=== PATIENT | female | born 1965 | race Caucasian/White ===

== ENCOUNTER 2016-07-14 17:51 | Emergency (ER) | payer OTHER ==
[~2016-07-14] VITALS: Ht 172.7 cm; Wt 58.5 kg
[~2016-07-14 17:51] MED LIST: ACARBOSE50 MG PO; CARAFATE 1GM1000 MG PO; CHOLESTYRAMINE P4 GM PO; DAILY MULTIPLE1 TAB PO; DEPAKOTE ER500 M1 PO; DEXILANT30 MG PO; DIVALPROEX SOD500 M1 PO; HYDROCODONE BI120 M1 PO; HYDROXYZINE PAM25 M2 PO; HYDROXYZINE PAM25 MG PO; LEVSIN-SL0.125 MG SL; MULTI-DAY VITA1 EACH PO; OXYCODONE5 M1 PO; PANTOPRAZOLE SO40 M1 PO; PROTONIX 20MG T20 MG PO; PROVENTIL HFA6.7 GM INH; REGLAN10 MG PO; SERTRALINE HYDR50 MG PO; TOPROL XL25 MG PO; VIBERZI75 MG PO; VITAB121000 SL; WELCHOL 625 MG625 MG PO; XANAX1 MG PO; XIFAXAN550 MG; XIFAXAN550 MG PO; ZOFRAN ODT4 M1 SL; ZOFRAN4 M1 PO; ZOFRAN4 M1 SL; ZOLOFT100 M1 PO
[2016-07-14 18:19] LABS: ABSOLUTE BASOPHIL COUNT 0 /CUMM (0.0-0.2); ABSOLUTE EOSINOPHIL COUNT 0 /CUMM (0.0-0.7); ABSOLUTE MONOCYTE COUNT 0.4 /CUMM (0.10-0.60); BASOPHIL % 0.4 % (0.0-2.0); EOSINOPHIL % 0.5 % (0-5); GRANULOCYTE % 66.6 % (42.2-75.2); HEMATOCRIT 39.7 % (37-47); MEAN CORPUSCULAR HGB 33.3 PG (27.0-31.0); MEAN CORPUSCULAR VOLUME 100.8 FL (81.0-99.0); MEAN PLATELET VOLUME 9.2 FL (7.4-10.4); PLATELET COUNT 177 /CUMM (130-400); RBC DISTRIBUTION WIDTH 13.9 % (11.5-14.5); RED BLOOD CELL CT 3.94 /CUMM (4.20-5.40); WHITE BLOOD CELL COUNT 7.5 /CUMM (4.8-10.8)
--- NOTE | 2016-07-14 18:44 | ED GI/GU/ABDOMINAL COMPLAINT ---
History of Present Illness General Chief Complaint: Abdominal Pain/Flank Pain Stated Complaint: ABD PAIN, HX OBSTRUCTIONS Source: patient, BOYFRIEND Exam Limitations: no limitations Vital Signs & Intake/Output Vital Signs & Intake/Output Vital Signs Date Time Temp Pulse Resp B/P B/P Pulse O2 O2 Flow FiO2 Mean Ox Delivery Rate 07/14 2244 96.0 73 16 95/60 97 Room Air 07/14 1902 98 Room Air 07/14 1757 96.7 69 18 Room Air ED Intake and Output 07/15 0000 07/14 1200 Intake Total Output Total Balance Patient 129 lb Weight Weight Reported by Patient Measurement Method Triage Note: 51 Y/O FEMALE C/O ABDOMINAL "SPASMS" AND DRY HEAVING/BELCHING SINCE MONDAY. HX GASTRIC BYPASS IN 2011 AND HAS HAD 5 "BLOCKAGES SINCE" - STATES THIS FEELS THE SAME. REPORTS SHE IS ABLE TO PASS GAS AND HAS CHRONIC DIARRHEA. AFEBRILE. Triage Nurses Notes Reviewed? yes HPI: Patient presents for evaluation of severe nausea and vomiting and abdominal pain that began 6 days ago, gradually. Patient's symptoms have been more or less constant and of gotten worse optic her to come to the emergency department for evaluation. She is experiencing severe nausea and vomiting/dry heaves. She has tried Zofran without improvement. She is also having diarrhea that tends to be chronic for her. She is status post Sulma-en-Y procedure and contacted her bariatric surgeon, who felt a CAT scan should be obtained. Patient states that shortly after she contacted the surgeon she felt worse and came to the emergency department. Her abdominal pain as a diffuse cramping abdominal pain. Nothing seems to make her feel better. (ZOIE SMITH,FLORES Flores) Allergies Coded Allergies: adhesive tape (Intermediate, RASH 06/15/15) aspirin (Intermediate, RASH 06/15/15) hydrocodone (Intermediate, ITCHING 06/15/15) latex (Intermediate, RASH 06/15/15) povidone-iodine (From BETADINE) (Intermediate, RASH 06/18/15) soap (From BETADINE) (Intermediate, RASH 06/18/15) risperidone (From RISPERDAL) (TACHYCARDIA 07/14/16) Uncoded Allergies: DERMABOND SKIN GLUE (Intermediate, RASH 05/04/14) Reconcile Medications Acarbose 50 MG TABLET 1 TAB PO PRN BLOOD SUGAR (Reported) Albuterol Sulfate (Proventil Hfa) 90 MCG HFA.AER.AD 2 PUF INH PRN RESPIRATORY (Reported) Colesevelam Hydrochloride (Welchol) 625 MG TABLET 2 TAB PO BID DIARRHEA ( Reported) Cyclobenzaprine HCl 10 MG TABLET 1 TAB PO TID PRN MUSCLE SPASMS (Reported) Dimenhydrinate (Dramamine) 50 MG TABLET 1 TAB PO PRN NAUSEA (Reported) Divalproex Sodium (Depakote ER) 500 MG TAB.ER.24H 2,000 MG PO QPM MENTAL HEALTH (Reported) Hydroxyzine Pamoate 50 MG CAPSULE 1 CAP PO QAM ANXIETY (Reported) Hydroxyzine Pamoate 50 MG CAPSULE 2 TAB PO QPM SLEEP/ANXIETY (Reported) Multivitamin (Multi-Day Vitamins) 1 EACH TABLET 1 TAB PO DAILY SUPPLEMENT ( Reported) Ondansetron (Zofran Odt) 4 MG TAB.RAPDIS 1 TAB SL TID PRN nausea Pantoprazole Sodium 40 MG TABLET.DR 1 TAB PO DAILY GI (Reported) Pramipexole Di-HCl (Mirapex) 0.25 MG TABLET 1 TAB PO QPM LEG CRAMPS (Reported ) Sertraline HCl (Zoloft) 100 MG TABLET 2 TAB PO QAM MENTAL HEALTH (Reported) ? n Is pt currently ? No (ARUN SMITH,TONNY) Past History Travel History Traveled to [place] past 21 day No Medical History Neurological: NONE EENT: NONE Cardiovascular: bradycardia ventricular bigeminy PVCs Respiratory: bronchitis, pneumonia Gastrointestinal: GERD, small bowel obstruction OVERGROWTH IN SMALL INT. 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 SISTER (hypothyroidism). FATHER (valvular heard disease). Relation not specified for: FH: aortic stenosis (ZOIE SMITH,FLORES Flores) Medical History Any Pertinent Medical History? see below for history Family History Hx Contributory? No (TONNY DIAS MD) Review of Systems Review of Systems Constitutional: Reports: see HPI, malaise. EENTM: Reports: no symptoms. Respiratory: Reports: no symptoms. Cardiovascular: Reports: no symptoms. GI: Reports: see HPI, abdominal pain, nausea, vomiting. Genitourinary: Reports: no symptoms. Musculoskeletal: Reports: no symptoms. Skin: Reports: no symptoms. Neurological/Psychological: Reports: no symptoms. Hematologic/Endocrine: Reports: no symptoms. Immunologic/Allergic: Reports: no symptoms. All Other Systems: Reviewed and Negative (TONNY DIAS MD) Physical Exam Physical Exam Gastrointestinal: SEE BELOW Comments: Gen.: Well-nourished, well-developed, no acute respiratory distress. Head: Normocephalic, atraumatic. Eyes: Normal inspection bilaterally Ears: Normal inspection bilaterally Nose: Normal inspection Throat/mouth : Moist mucosa Neck: Supple, full range of motion, no goiter Heart: Regular rate and rhythm, no murmurs rubs or gallops Lungs: Clear to auscultation bilaterally with normal air entry Chest: Nontender Back: Normal range of motion Abdomen: Soft, diffusely tender without rebound or guarding, nondistended, normal bowel sounds, no palpable masses Extremities: Normal range of motion grossly, equal radial pulses, no cyanosis, mild pretibial pitting edema bilaterally Neurologic: Cranial nerves grossly intact, speech is clear Skin: warm and dry Psychiatric: Calm, cooperative, no apparent delusions or hallucinations (ZOIE SMITH,FLORES Flores) Core Measures ACS in differential dx? No Severe Sepsis Present: No Septic Shock Present: No (TONNY DIAS MD) Progress Differential Diagnosis: biliary colic, bowel obstruction, diverticulitis, pancreatitis Plan of Care: Orders Procedure Date/time Status Add-on Test (ER Only) 07/14 184 Active LIPASE 07/14 1801 Complete COMPREHENSIVE METABOLIC PANEL 07/14 180 Complete CBC WITHOUT DIFFERENTIAL 07/14 1800 Complete Laboratory Tests 07/14/16 180: Anion Gap 9, Estimated GFR > 60, BUN/Creatinine Ratio 18.8, Glucose 81, Calcium 9.2, Total Bilirubin 0.5, AST 24, ALT 42, Alkaline Phosphatase 38, Total Protein 6.4, Albumin 4.2, Globulin 2.2, Albumin/Globulin Ratio 1.9, Lipase 185, CBC w Diff NO MAN DIFF REQ, RBC 3.94 L, MCV 100.8 H, MCH 33.3 H, RDW 13.9, MPV 9.2, Gran % 66.6, Lymphocytes % 26.6, Monocytes % 5.9, Eosinophils % 0.5, Basophils % 0.4, Absolute Granulocytes 5.0, Absolute Lymphocytes 2.0, Absolute Monocytes 0.4 , Absolute Eosinophils 0, Absolute Basophils 0, PUBS MCHC 33.0 Initial ED EKG: none Comments: 07/14/2016 7:28:26 PM 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 (ZOIE SMITH,FLORES Flores) Diagnostic Imaging: Viewed by Me: CT Scan. Discussed w/RAD: CT Scan. Radiology Impression: No acute findings of the abdomen or pelvis. No bowel obstruction. No definite acute inflammatory changes. Comments: Updated with results. No further nausea complains of continued pain. Resting comfortably without pain after IV acetaminophen. (TONNY DIAS MD) Departure Departure Condition: Stable Departure Forms: Customer Survey General Discharge Information (ZOIE SMITH,FLORES Flores) Departure Time of Disposition: 2217 Disposition: HOME OR SELF CARE Clinical Impression Primary Impression: Abdominal pain in female patient Secondary Impressions: Nausea and vomiting in adult Referrals: JUDE TAN DO, MD,BRUNA Hernandez (PCP/Family) Prescriptions: Current Visit Scripts Ondansetron (Zofran Odt) 1 TAB SL TID PRN nausea #15 TAB (TONNY DIAS MD)
[2016-07-14] MEDS ORDERED: CYCLOBENZAPRINE10 M1 PO (19:44)
[2016-07-14] MEDS ORDERED: HYDROXYZINE PAM50 M1 PO ×2 (19:45)
[2016-07-14] MEDS ORDERED: WELCHOL625 MG PO (19:46)
[2016-07-14] MEDS ORDERED: MIRAPEX0.25 M1 PO (19:46)
[2016-07-14] MEDS ORDERED: DRAMAMINE50 M2 PO (19:47)
--- NOTE | 2016-07-14 20:29 | CT SCAN REPORT ---
EXAMINATION: CT ABDOMEN AND PELVIS WITH CONTRAST CLINICAL INFORMATION: Cramping abdominal pain and vomiting. COMPARISON: 12/11/2015. TECHNIQUE: Multidetector volumetric imaging was performed of the abdomen and pelvis before and after the IV administration of 95 mL of Optiray 320 intravenous contrast. Sagittal and coronal reformatted images were obtained on the technologist's workstation. DLP: 240 mGy-cm FINDINGS: LUNG BASES: The visualized lung bases are unremarkable. LIVER, GALLBLADDER, AND BILIARY TREE: The liver is normal in size, shape, and attenuation. No focal hepatic lesion or biliary ductal dilatation is present. Cholecystectomy. PANCREAS: Unremarkable. SPLEEN: Unremarkable. ADRENAL GLANDS: Unremarkable. KIDNEYS AND URETERS: The kidneys are normal in size, shape, and attenuation. No hydronephrosis, hydroureter, or calculi seen. No perinephric stranding. BLADDER: Unremarkable. GASTROINTESTINAL TRACT: Evaluation of the bowel is limited due to lack of intra-abdominal fat. Status post Sulma-en-Y gastric bypass. No dilated loops of bowel or evidence of obstruction. No colonic wall thickening or inflammatory change. No free air or free fluid. ABDOMINAL WALL: No significant hernia is appreciated. Mild anasarca. LYMPH NODES: Normal. VASCULAR: Unremarkable. PELVIC VISCERA: Uterus is not seen. No adnexal mass. OSSEOUS STRUCTURES: No acute or suspicious osseous abnormality. Degenerative changes of the spine. IMPRESSION: No acute findings of the abdomen or pelvis. No bowel obstruction. No definite acute inflammatory changes.
[2016-07-14] MEDS ORDERED: ZOFRAN ODT4 M1 SL (22:21)
[2016-07-14 22:44] VITALS: BP 95/60
== END 2016-07-14 22:59 ==
LOC: ERH 17:51
PROVIDERS: Emergency Medicine
DX: R10.9 Unspecified abdominal pain (principal); R11.2 Nausea with vomiting, unspecified
CPT/HCPCS: 74177; 96361; 96374; 96375; J0131; J2405; J2550